=== PATIENT | female | born 1990 | race Caucasian/White ===

== ENCOUNTER 2016-08-01 23:02 | Inpatient (IN) | payer OTHER ==
[~2016-08-01] VITALS: Ht 162.6 cm; Wt 78.4 kg
[2016-08-01 23:05] VITALS: BP 88/59; PULSE 100; RESP 16
--- NOTE | 2016-08-01 23:05 | PD ---
HPI Chief Complaint: alcohol intoxication, Gallagher act Time Seen by Provider: 23:05 Travel History International Travel<30 days: No Contact w/Intl Traveler<30days: No Traveled to known affect area: No History of Present Illness HPI 26-year-old female was found heavily intoxicated by bystanders EMS was called. Patient was combative at the scene and she was brought in as Gallagher act. By the time she got here she was pretty much unresponsive even with sternal rub. Her airway was unsafe at that point with a high risk of aspiration. I decided to intubate her at that point. Patient was unable to give any meaningful history. No external signs of injuries. [facility] Past Medical History Narrative Medical List of her past medical, surgical, social and family history was reviewed from the nursing note. Social History Tobacco Use: Yes Allergies-Medications (Allergen,Severity, Reaction): Coded Allergies: UNOBTAINABLE (Unverified , 08/02/16) Comments Unknown Narrative Medication Unknown Review of Systems Except as stated in HPI: all other systems reviewed are Neg Physical Exam Narrative GENERAL: Intoxicated, poorly responsive, obese, disheveled SKIN: Warm and dry. HEAD: Atraumatic. Normocephalic. EYES: Pupils equal and round. No scleral icterus. No injection or drainage. ENT: No nasal bleeding or discharge. Mucous membranes pink and moist. NECK: Trachea midline. No JVD. CARDIOVASCULAR: Regular rate and rhythm. No murmur appreciated. RESPIRATORY: No accessory muscle use. Clear to auscultation. Breath sounds equal bilaterally. GASTROINTESTINAL: Abdomen soft, non-tender, nondistended. Hepatic and splenic margins not palpable. MUSCULOSKELETAL: No obvious deformities. No clubbing. No cyanosis. No edema. NEUROLOGICAL: GCS of 8 PSYCHIATRIC: Unable to as Data Data Last Documented VS Vital Signs Date Time Temp Pulse Resp B/P Pulse Ox O2 Delivery O2 Flow Rate FiO2 08/02/16 01:49 103 15 136/66 100 Ventilator 08/01/16 23:52 50 Orders Propofol 1000 Mg/100 Ml Inj (Diprivan 10 (08/01/16 23:30) Lidocaine 2% Inj (Xylocaine 2% Inj) (08/01/16 23:31) Etomidate Inj (Amidate Inj) (08/01/16 23:31) Rocuronium Inj (Zemuron Inj) (08/01/16 23:32) Succinylcholine Inj (Quelicin Inj) (08/01/16 23:32) Ammonia (08/02/16 00:01) Complete Blood Count With Diff (08/02/16 00:) Comprehensive Metabolic Panel (08/02/16 00:01) Prothrombin Time / Inr (Pt) (08/02/16 00:01) Urinalysis - C+S If Indicated (08/02/16 00:) Arterial Blood Gas (Abg) (08/02/16 00:01) Chest, Single Ap (08/02/16 00:01) Ct Brain W/O Iv Contrast(Rout) (08/02/16 00:01) Blood Glucose (08/02/16 00:) Ecg Monitoring (08/02/16 00:) Iv Access Insert/Monitor (08/02/16 00:) Oximetry (08/02/16 00:01) Sodium Chloride 0.9% Flush (Ns Flush) (08/02/16 00:15) Sodium Chlor 0.9% 1000 Ml Inj (Ns 1000 M (08/02/16 00:01) Drug Screen, Random Urine (08/02/16 00:01) Alcohol (Ethanol) (08/02/16 00:01) Salicylates (Aspirin) (08/02/16 00:01) Tylenol (Acetaminophen) (08/02/16 00:01) Ed Urine Pregnancytest Poc (08/02/16 00:01) Urinary Catheter Insert/Apply (08/02/16 00:01) Nadeem-Gastric Tube Insert/Mon (08/02/16 00:01) Propofol 1000 Mg/100 Ml Inj (Diprivan 10 (08/02/16 00:15) ^ Infusion (08/02/16 00:01) RASS (08/02/16 00:01) Neurological Rass Scale ALMA DELIA.Q2H (08/02/16 00:01) Propofol 200 Mg/20 Ml Inj (Diprivan 200 (08/02/16 00:15) Etomidate Inj (Amidate Inj) (08/02/16 00:15) Succinylcholine Inj (Quelicin Inj) (08/02/16 00:15) Admit To Inpatient (08/02/16 ) Code Status (08/02/16 01:53) Vital Signs (Adult) ALMA DELIA.Q1H (08/02/16 01:53) Activity Bed Rest (08/02/16 01:53) ^ Elevate Head Of Bed (08/02/16 01:53) Neuro Checks . ORDERED (08/02/16 01:53) Intake + Output Q1H (08/02/16 01:53) Diet Npo (08/02/16 Breakfast) Sodium Chlor 0.9% 1000 Ml Inj (Ns 1000 M (08/02/16 01:53) Sodium Chloride 0.9% Flush (Ns Flush) (08/02/16 02:00) Sodium Chloride 0.9% Flush (Ns Flush) (08/02/16 09:00) Acetaminophen (Tylenol) (08/02/16 02:00) Lorazepam Inj (Ativan Inj) (08/02/16 02:00) Artificial Tears Opth Soln (Tears Natura (08/02/16 09:00) Ondansetron Inj (Zofran Inj) (08/02/16 02:00) Metoclopramide Inj (Reglan Inj) (08/02/16 02:00) Docusate Sodium Liq (Colace Liq) (08/02/16 02:00) Albuterol-Ipratropium Neb (Duoneb Neb) (08/02/16 02:00) Complete Blood Count With Diff (08/03/16 04:00) Comprehensive Metabolic Panel (08/03/16 04:00) Creatine Kinase (Cpk) (08/02/16 01:53) Magnesium (Mg) (08/03/16 04:00) Phosphorus (Po4) (08/03/16 04:00) Mold Clamper / Telemetry ALMA DELIA.Q8H (08/02/16 01:53) Enoxaparin Inj (Lovenox Inj) (08/02/16 06:00) Scd Bilateral/Knee High ALMA DELIA.BID (08/02/16 01:53) Fernandez Bilateral/Knee High ALMA DELIA.QSHIFT (08/02/16 01:53) ^ Initiate Protocol (08/02/16 01:53) ^ Instruction (08/02/16 01:53) Misc Nursing Information (08/02/16 02:00) Chlorhexidine 2% Cloth (Chlorhexidine 2% (08/02/16 04:00) Chlorhexidine 2% Cloth (Chlorhexidine 2% (08/02/16 02:00) Mrsa Pcr Surveillance (08/02/16 01:53) Propofol 1000 Mg/100 Ml Inj (Diprivan 10 (08/02/16 02:00) Neurological Rass Scale Q30MX2,Q2HX4,Q4H (08/02/16 01:53) Fentanyl Drip (Fentanyl Drip) (08/02/16 02:00) Inpatient Certification (08/02/16 ) ^ Medication Admin Instruction (08/02/16 01:57) ^ Notify Dr: Other (08/02/16 01:57) Phosphorus (Po4) (08/02/16 01:57) Potassium Chlor 40 Meq Premix (Kcl 40 Me (08/02/16 02:00) Potassium Chlor 20 Meq Premix (Kcl 20 Me (08/02/16 02:00) Potassium Chlor 40 Meq Premix (Kcl 40 Me (08/02/16 02:00) Potassium Chlor 20 Meq Premix (Kcl 20 Me (08/02/16 02:00) Magnesium Sulfate Inj (Magnesium Sulfate (08/02/16 02:00) Magnesium Oxide (Mag-Ox) (08/02/16 02:00) Magnesium Sulfate Inj (Magnesium Sulfate (08/02/16 02:00) Potassium Phosphate (K-Phos) (08/02/16 02:00) Sodium Phosphate Inj (Sodium Phosphate I (08/02/16 02:00) Potassium Phosphate (K-Phos) (08/02/16 02:00) Potassium Phosphate Inj (Potassium Phosp (08/02/16 02:00) Chlordiazepoxide (Librium) (08/02/16 09:00) Admit Order (Ed Use Only) (08/02/16 02:13) Chest, Single Ap (08/02/16 ) Labs Laboratory Tests Test 08/02/16 08/02/16 00:35 01:00 Prothrombin Time 10.3 SEC Prothromb Time International 0.9 RATIO Ratio Sodium Level 145 MEQ/L Potassium Level 3.9 MEQ/L Chloride Level 110 MEQ/L Carbon Dioxide Level 24.3 MEQ/L Anion Gap 11 MEQ/L Blood Urea Nitrogen 6 MG/DL Creatinine 0.74 MG/DL Estimat Glomerular Filtration 95 ML/MIN Rate Random Glucose 104 MG/DL Calcium Level 8.2 MG/DL Phosphorus Level 4.7 MG/DL Total Bilirubin 0.3 MG/DL Aspartate Amino Transf 59 U/L (AST/SGOT) Alanine Aminotransferase 82 U/L (ALT/SGPT) Alkaline Phosphatase 69 U/L Ammonia 22 MCMOL/L Total Creatine Kinase 138 U/L Total Protein 8.0 GM/DL Albumin 4.0 GM/DL Salicylates Level 3.8 MG/DL Acetaminophen Level LESS THAN 2.0 MCG/ML Ethyl Alcohol Level 385 MG/DL White Blood Count 10.0 TH/MM3 Red Blood Count 5.23 MIL/MM3 Hemoglobin 15.7 GM/DL Hematocrit 46.4 % Mean Corpuscular Volume 88.7 FL Mean Corpuscular Hemoglobin 30.1 PG Mean Corpuscular Hemoglobin 33.9 % Concent Red Cell Distribution Width 15.3 % Platelet Count 230 TH/MM3 Mean Platelet Volume 8.1 FL Neutrophils (%) (Auto) 47.1 % Lymphocytes (%) (Auto) 47.2 % Monocytes (%) (Auto) 3.9 % Eosinophils (%) (Auto) 1.0 % Basophils (%) (Auto) 0.8 % Neutrophils # (Auto) 4.7 TH/MM3 Lymphocytes # (Auto) 4.7 TH/MM3 Monocytes # (Auto) 0.4 TH/MM3 Eosinophils # (Auto) 0.1 TH/MM3 Basophils # (Auto) 0.1 TH/MM3 CBC Comment DIFF FINAL Differential Comment Blood Gas Puncture Site RT FOOT Blood Gas Patient Temperature 98.6 Blood Gas HCO3 21 mmol/L Blood Gas Base Excess -4.0 mmol/L Blood Gas Oxygen Saturation 93 % Arterial Blood pH 7.32 Arterial Blood Partial 42 mmHg Pressure CO2 Arterial Blood Partial 117 mmHg Pressure O2 Arterial Blood Oxygen Content 21.4 Vol % Arterial Blood 3.3 % Carboxyhemoglobin Arterial Blood Methemoglobin 0.9 % Blood Gas Hemoglobin 16.2 G/DL Oxygen Delivery Device VENTILATOR Blood Gas Ventilator Setting AC14/500 5 PEEP Blood Gas Inspired Oxygen 50 % Urine Opiates Screen NEG Urine Barbiturates Screen NEG Urine Amphetamines Screen NEG Urine Benzodiazepines Screen NEG Urine Cocaine Screen POS Urine Cannabinoids Screen POS Urine Color COLORLESS Urine Turbidity CLEAR Urine pH 5.0 Urine Specific [place] 1.004 Urine Protein NEG mg/dL Urine Glucose (UA) NEG mg/dL Urine Ketones NEG mg/dL Urine Occult Blood NEG Urine Nitrite NEG Urine Bilirubin NEG Urine Urobilinogen LESS THAN 2.0 MG/DL Urine Leukocyte Esterase NEG Urine Amorphous Sediment RARE Urine Bacteria RARE /hpf Microscopic Urinalysis Comment CATH-CULTURE IND MDM Medical Decision Making Medical Screen Exam Complete: Yes Emergency Medical Condition: Yes Medical Record Reviewed: Yes Differential Diagnosis Alcohol intoxication, intracranial injury, alcohol poisoning Narrative Course 2 AM blood test results are back. Alcohol level was extremely high. Chest x- ray after intubation was mentioned to be ET tube below into almost right mainstem bronchus. This was pulled out 3 cm. A repeat chest x-ray has been ordered. Patient was admitted to the flume maker. Awaiting for the CT scan of the head. Propofol drip for sedation was started. Critical Care Narrative Aggregate critical care time was 60 minutes. Time to perform other separately billable procedures was not included in the critical care time. My time did not include minutes spent treating any other patients simultaneously or on activities that did not directly contribute to the patient's treatment. The services I provided to this patient were to treat and/or prevent clinically significant deterioration that could result in: Respiratory failure, ventilator management, altered mental status, propofol drip I provided critical care services requiring my management, as noted below: Chart data review, documentation time, medication orders and management, vital sign assessments/reviewing monitor data, ordering and reviewing lab tests, ordering and interpreting/reviewing x-rays and diagnostic studies, care of the patient and discussion of the patient with the admitting physicians. Procedures Procedure Narrative After the risks and benefits were discussed the following procedure was performed: INTUBATION: The patient was put in optimal position for the procedure. Rapid sequence intubation was initiated by me using 20 milligrams of etomidate IV and 100 milligrams of succinylcholine IV. The patient was intubated with a 7.5 cuffed endotracheal tube. Tube placement was confirmed by visualization of the tube and balloon passing through the cords, capnometry and subsequent chest x-ray. Breath sounds were equal and well aerated bilaterally postintubation. No breath sounds over stomach. Patient tolerated procedure well. EKG Prior to Arrival: No Physician Communication Physician Communication Dr. Das Diagnosis Primary Impression: Alcohol poisoning Qualified Code: T51.94XA - Alcohol poisoning, undetermined intent, initial encounter Additional Impressions: Slowness and poor responsiveness Respiratory failure Qualified Code: J96.00 - Acute respiratory failure, unspecified whether with hypoxia or hypercapnia Admitting Information Admitting Physician Requests: Admit Melissa Grande MD Aug 01, 2016 23:05
[2016-08-01] MEDS ORDERED: PROPOFOL 1000 MG/100 ML INJ 100 ML ONE (23:30)
[2016-08-01] MEDS ORDERED: ETOMIDATE 20 MG/10 ML VIAL ONE (23:31)
[2016-08-01] MEDS ORDERED: LIDOCAINE HCL 2% 100 MG/5 ML SYRINGE ONE (23:31)
[2016-08-01] MEDS ORDERED: SUCCINYLCHOLINE CHLORIDE 200 MG/10 ML VIAL ONE (23:32)
[2016-08-01] MEDS ORDERED: ROCURONIUM INJ 50 MG/5 ML VIAL ONE (23:32)
[2016-08-01 23:38] VITALS: BP 99/65; PULSE 110; RESP 26; O2SAT 96
[2016-08-01 23:44] VITALS: O2SAT 100
[2016-08-01 23:52] VITALS: BP 168/122; PULSE 132; RESP 15; O2SAT 100
[2016-08-02] VITALS (18 sets, daily range): BP systolic 123–147; BP diastolic 66–106; PULSE 81–113; RESP 14–21; TEMP 98.2–98.9; O2SAT 93–100
[2016-08-02] MEDS ORDERED: SODIUM CHLOR 0.9% 1000 ML INJ 1,000 ML IV SCH (00:01)
[2016-08-02] MEDS ORDERED: SUCCINYLCHOLINE CHLORIDE 200 MG/10 ML VIAL IV PUSH ONE (00:15)
[2016-08-02] MEDS ORDERED: SODIUM CHLORIDE 0.9% FLUSH 5 ML FLUSH IVF PRN (00:15)
[2016-08-02] MEDS ORDERED: ETOMIDATE 20 MG/10 ML VIAL IV PUSH ONE (00:15)
[2016-08-02] MEDS ORDERED: PROPOFOL 200 MG/20 ML AMP IV ONE (00:15)
[2016-08-02 00:47] LABS: AUTOMATED NEUTROPHIL # 4.7 TH/MM3 (1.8-7.7); BASOPHIL # 0.1 TH/MM3 (0-0.2); BASOPHIL % 0.8 % (0.0-2.0); EOSINOPHIL # 0.1 TH/MM3 (0-0.4); HEMATOCRIT 46.4 % (35.0-46.0); HEMO FLAGS DIFF FINAL; LYMPH % 47.2 % (9.0-44.0); LYMPHOCYTE # 4.7 TH/MM3 (1.0-4.8); MEAN CELL VOLUME 88.7 FL (80.0-100.0); MEAN CORPUSCULAR HEMOGLOBIN 30.1 PG (27.0-34.0); MEAN CORPUSCULAR HGB CONC 33.9 % (32.0-36.0); MONO % 3.9 % (0.0-8.0); NEUT % 47.1 % (16.0-70.0); PLATELET COUNT 230 TH/MM3 (150-450); RED BLOOD COUNT 5.23 MIL/MM3 (4.00-5.30); RED CELL DISTRIBUTION WIDTH 15.3 % (11.6-17.2)
[2016-08-02 01:07] LABS: ALKALINE PHOSPHATASE 69 U/L (45-117); TOTAL BILIRUBIN ADULT 0.3 MG/DL (0.2-1.0)
--- NOTE | 2016-08-02 01:10 | RADRPT ---
EXAM DATE/TIME: 08/02/2016 00:48 [facility] COMPARISON: No previous studies available for comparison. INDICATIONS : Post intubation. MEDICAL HISTORY : None. SURGICAL HISTORY : None. ENCOUNTER: Initial ACUITY: 1 day PAIN SCORE: Non-responsive. LOCATION: Bilateral chest FINDINGS: Endotracheal tube tip is in proximal right mainstem bronchus. This should be withdrawn about 3 cm. NG coiled in stomach. There is previous fusion across the cervicothoracic junction. No focal consolidat ion or effusion. CONCLUSION: 1. Endotracheal tube tip in proximal right mainstem bronchus. This should be withdrawn by 3 cm. Zachary Wills MD on August 02, 2016 at 1:07 Board Certified Radiologist. This report was verified electronically.
[2016-08-02 01:17] LABS: ALT (GPT) 82 U/L (10-53); ANION GAP 11 MEQ/L (5-15); AST (GOT) 59 U/L (15-37); BICARBONATE 24.3 MEQ/L (21.0-32.0); BLOOD UREA NITROGEN 6 MG/DL (7-18); CHLORIDE 110 MEQ/L (98-107); GLOMERULAR FILTRATION RATE 95 ML/MIN (>89); POTASSIUM 3.9 MEQ/L (3.5-5.1); SODIUM (NA) 145 MEQ/L (136-145)
[2016-08-02 01:19] LABS: ACETAMINOPHEN LESS THAN 2.0 MCG/ML (10.0-30.0); INTERNATIONAL NORMALIZED RATIO 0.9 RATIO; PROTHROMBIN TIME - PATIENT 10.3 SEC (9.8-11.6)
[2016-08-02 01:26] LABS: AMPHETAMINE, URINE NEG (NEG); BARBITURATES, URINE NEG (NEG); BLOOD GAS CARBOXYHEMOGLOBIN 3.3 % (0-4); BLOOD GAS HCO3 21 mmol/L (22-26); BLOOD GAS METHEMOGLOBIN 0.9 % (0-2); BLOOD GAS O2 HGB SATURATION 93 % (90-100); BLOOD GAS OXYGEN CONTENT 21.4 Vol % (12.0-20.0); BLOOD GAS PCO2 42 mmHg (38-42); BLOOD GAS PO2 117 mmHg (61-120); BLOOD GAS TOTAL HGB 16.2 G/DL (12.0-16.0); COCAINE, URINE POS (NEG); CRITICAL VALUE NO; DRAW SITE RT FOOT; FIO2 50 %; NUMBER OF ARTERIAL PUNCTURES 1; OXYGEN DEVICE VENTILATOR; TEMP CORR TO 98.6; VENT SETTINGS AC14/500 5 PEEP
[2016-08-02 01:27] LABS: STAT YES
--- NOTE | 2016-08-02 01:59 | HHI.HP ---
HPI Service Critical Care Medicine Primary Care Physician Unknown Admission Diagnosis Diagnosis: Travel History International Travel<30 Days: No Contact w/Intl Traveler <30 Da: No History of Present Illness 26-year-old female brought to emergency department heavily intoxicated with alcohol level 385, positive for cocaine and marijuana. In the emergency department she was lethargic but responsive and was intubated by ED attending for an airway protection. Review of Systems ROS Unable to obtain patient is sedated and intubated Past Family Social History Allergies: Coded Allergies: UNOBTAINABLE (Unverified , 08/02/16) Past Medical History Unobtainable Past Surgical History Unobtainable Active Ordered Medications Current Medications Medications (Trade) Dose Ordered Sig/Prince Route PRN Reason Start Time Stop Time Status Last Admin Dose Admin IV Flush 2 ml 2 ml UNSCH PRN IVF FLUSH AFTER USING IV ACCESS 08/02/16 00:15 Propofol 100 ml @ 0 mls/hr TITRATE IV 08/02/16 00:15 Sodium Chloride (NS 1000 ml Inj) 1,000 ml @ 184 mls/hr Q5H27M IV 08/02/16 01:53 IV Flush (NS Flush) 2 ml UNSCH PRN IV FLUSH FLUSH AFTER USING IV ACCESS 08/02/16 02:00 IV Flush (NS Flush) 2 ml BID IV FLUSH 08/02/16 09:00 Acetaminophen (Tylenol) 650 mg Q6H PRN PO PAIN 1-10 AND/OR FEVER >101F 08/02/16 02:00 Lorazepam (Ativan Inj) 2 mg Q4H PRN IV Agitation/Sedation 08/02/16 02:00 Artificial Tears (Tears Naturale Opth Soln) 1 drop TID EACH EYE 08/02/16 09:00 Ondansetron HCl (Zofran Inj) 4 mg Q6H PRN IV NAUSEA OR VOMITING 08/02/16 02:00 Metoclopramide HCl (Reglan Inj) 10 mg Q6H PRN IV NAUSEA OR VOMITING 08/02/16 02:00 Docusate Sodium (Colace Liq) 100 mg Q12H G-TUBE 08/02/16 02:00 Enoxaparin Sodium (Lovenox Inj) 40 mg Q24H SQ 08/02/16 06:00 Miscellaneous Information 1 Q361D XX 08/02/16 02:00 Chlorhexidine Gluconate (Chlorhexidine 2% Cloth) 3 pack Taper DAILY@04 TOP 08/02/16 04:00 07/29/17 03:59 Chlorhexidine Gluconate 3 pack 3 pack UNSCH PRN TOP HYGIENIC CARE 08/02/16 02:00 Propofol 100 ml @ 0 mls/hr TITRATE IV 08/02/16 02:00 Fentanyl Citrate 250 ml @ 0 mls/hr TITRATE IV 08/02/16 02:00 Potassium Chloride 100 ml @ 50 mls/hr Q2H PRN IV For Potassium 2.8 - 3.2 mEq/L 08/02/16 02:00 Potassium Chloride 100 ml @ 50 mls/hr Q2H PRN IV For Potassium 2.8 - 3.2 mEq/L 08/02/16 02:00 Potassium Chloride 100 ml @ 25 mls/hr UNSCH PRN IV For Potassium 3.3 - 3.5 mEq/L 08/02/16 02:00 Potassium Chloride 100 ml @ 50 mls/hr Q2H PRN IV For Potassium 3.3 - 3.5 mEq/L 08/02/16 02:00 Magnesium Sulfate/ Sodium Chloride (Magnesium Sulfate Inj/NS Inj) 100 ml @ 50 mls/hr UNSCH PRN IV For Magnesium 0.9 - 1.1 mg/dL 08/02/16 02:00 Magnesium Oxide 800 mg 800 mg UNSCH PRN PO For Magnesium 1.2 - 1.6 mg/dL 08/02/16 02:00 Magnesium Sulfate/ Sodium Chloride (Magnesium Sulfate Inj/NS Inj) 100 ml @ 50 mls/hr UNSCH PRN IV For Magnesium 1.2 - 1.6 mg/dL 08/02/16 02:00 Potassium Phosphate 2000 mg 2,000 mg Q4H PRN PO For Phosphorus < 2.5 mg/dL 08/02/16 02:00 Sodium Phosphate/ Sodium Chloride (Sodium Phosphate Inj/NS 250 ml Inj) 250 ml @ 42 mls/hr UNSCH PRN IV For Phosphorus < 2.5 mg/dL 08/02/16 02:00 Potassium Phosphate 2000 mg 2,000 mg UNSCH PRN PO/TUBE SEE LABEL COMMENTS 08/02/16 02:00 Potassium Phosphate/Sodium Chloride (Potassium Phosphate Inj/NS 250 ml Inj) 260 ml @ 42 mls/hr UNSCH PRN IV SEE LABEL COMMENTS 08/02/16 02:00 Chlordiazepoxide (Librium) 25 mg Taper TID PO 08/02/16 09:00 08/05/16 08:59 Family History Noncontributory Social History Positive for alcohol and illicit drug abuse Physical Exam Vital Signs Vital Signs Date Time Temp Pulse Resp B/P Pulse Ox O2 Delivery O2 Flow Rate FiO2 08/02/16 01:19 105 15 143/83 100 Ventilator 08/01/16 23:52 132 15 168/122 100 50 08/01/16 23:44 50 08/01/16 23:44 100 50 08/01/16 23:38 110 26 99/65 96 Room Air 08/01/16 23:38 96 Room Air 08/01/16 23:05 100 16 88/59 Physical Exam GENERAL: Well-nourished, well-developed patient. Sedated and intubated SKIN: Warm and dry. HEAD: Normocephalic. EYES: No scleral icterus. No injection or drainage. NECK: Supple, trachea midline. No JVD or lymphadenopathy. CARDIOVASCULAR: Regular rate and rhythm without murmurs, gallops, or rubs. RESPIRATORY: Breath sounds equal bilaterally. No accessory muscle use. GASTROINTESTINAL: Abdomen soft, non-tender, nondistended. MUSCULOSKELETAL: No cyanosis, or edema. BACK: Nontender without obvious deformity. No CVA tenderness. EXTREMITIES: Nonfocal no edema or cyanosis Laboratory Laboratory Tests Test 08/02/16 08/02/16 00:35 01:00 White Blood Count 10.0 Red Blood Count 5.23 Hemoglobin 15.7 Hematocrit 46.4 Mean Corpuscular Volume 88.7 Mean Corpuscular Hemoglobin 30.1 Mean Corpuscular Hemoglobin 33.9 Concent Red Cell Distribution Width 15.3 Platelet Count 230 Mean Platelet Volume 8.1 Neutrophils (%) (Auto) 47.1 Lymphocytes (%) (Auto) 47.2 Monocytes (%) (Auto) 3.9 Eosinophils (%) (Auto) 1.0 Basophils (%) (Auto) 0.8 Neutrophils # (Auto) 4.7 Lymphocytes # (Auto) 4.7 Monocytes # (Auto) 0.4 Eosinophils # (Auto) 0.1 Basophils # (Auto) 0.1 CBC Comment DIFF FINAL Differential Comment Prothrombin Time 10.3 Prothromb Time International 0.9 Ratio Sodium Level 145 Potassium Level 3.9 Chloride Level 110 Carbon Dioxide Level 24.3 Anion Gap 11 Blood Urea Nitrogen 6 Creatinine 0.74 Estimat Glomerular Filtration 95 Rate Random Glucose 104 Calcium Level 8.2 Total Bilirubin 0.3 Aspartate Amino Transf 59 (AST/SGOT) Alanine Aminotransferase 82 (ALT/SGPT) Alkaline Phosphatase 69 Ammonia 22 Total Protein 8.0 Albumin 4.0 Salicylates Level 3.8 Acetaminophen Level LESS THAN 2.0 Ethyl Alcohol Level 385 Blood Gas Puncture Site RT FOOT Blood Gas Patient Temperature 98.6 Blood Gas HCO3 21 Blood Gas Base Excess -4.0 Blood Gas Oxygen Saturation 93 Arterial Blood pH 7.32 Arterial Blood Partial 42 Pressure CO2 Arterial Blood Partial 117 Pressure O2 Arterial Blood Oxygen Content 21.4 Arterial Blood 3.3 Carboxyhemoglobin Arterial Blood Methemoglobin 0.9 Blood Gas Hemoglobin 16.2 Oxygen Delivery Device VENTILATOR Blood Gas Ventilator Setting AC14/500 5 PEEP Blood Gas Inspired Oxygen 50 Urine Opiates Screen NEG Urine Barbiturates Screen NEG Urine Amphetamines Screen NEG Urine Benzodiazepines Screen NEG Urine Cocaine Screen POS Urine Cannabinoids Screen POS Result Diagram: 08/02/16 0035 08/02/16 0035 Assessment and Plan Assessment and Plan Respiratory failure - Intubated for an airway protection - Continue mechanical ventilation - SBT when intoxication resolved if no withdrawal symptoms Encephalopathy - Due to Intoxication - Alcohol level 385, positive cannabis, positive cocaine - Monitor for withdrawal - Sedation with propofol and fentanyl - Librium taper - Ativan when necessary DVT GI prophylaxis - Heparin and Pepcid Critical Care: The total critical care time was 35 minutes. Time to perform other separately billable procedures was not included in the critical care time. Brando Das MD Aug 02, 2016 01:59
[2016-08-02] MEDS ORDERED: MAGNESIUM SULFATE INJ 4 GM in SODIUM CHLORIDE 0.9% INJ 92 ML IV PRN (02:00)
[2016-08-02] MEDS ORDERED: SODIUM CHLORIDE 0.9% FLUSH 5 ML FLUSH IV FLUSH PRN (02:00)
[2016-08-02] MEDS ORDERED: POTASSIUM PHOSPHATE INJ 30 MMOL in SODIUM CHLOR 0.9% 250 ML INJ 250 ML IV PRN (02:00)
[2016-08-02] MEDS ORDERED: METOCLOPRAMIDE HCL 10 MG/2 ML VIAL IV PRN (02:00)
[2016-08-02] MEDS ORDERED: POTASSIUM PHOSPHATE MONOBASIC 500 MG TAB PO/TUBE PRN (02:00)
[2016-08-02] MEDS ORDERED: ACETAMINOPHEN 325 MG TAB PO PRN (02:00)
[2016-08-02] MEDS ORDERED: fentaNYL DRIP 250 ML IV SCH (02:00)
[2016-08-02] MEDS ORDERED: POTASSIUM CHLOR 20 MEQ PREMIX 100 ML IV PRN ×2 (02:00)
[2016-08-02] MEDS ORDERED: RESP: ALBUTEROL 2.5 MG/IPRATROPIUM 0.5 MG NEB (PRN) INH (02:00)
[2016-08-02] MEDS ORDERED: PROPOFOL 1000 MG/100 ML INJ 100 ML IV SCH (02:00)
[2016-08-02] MEDS ORDERED: CHLORHEXIDINE GLUCONATE 2 % 1 PACK (2 CLOTHS) TOP PRN (02:00)
[2016-08-02] MEDS ORDERED: SODIUM PHOSPHATE INJ 30 MMOL in SODIUM CHLOR 0.9% 250 ML INJ 240 ML IV PRN (02:00)
[2016-08-02] MEDS ORDERED: ONDANSETRON HCL 4 MG/2 ML VIAL IV PRN (02:00)
[2016-08-02] MEDS ORDERED: MAGNESIUM SULFATE INJ 2 GM in SODIUM CHLORIDE 0.9% INJ 96 ML IV PRN (02:00)
[2016-08-02] MEDS: DOCUSATE SODIUM 100 MG/10 ML UDC G-TUBE SCH ×2 (02:00→14:00)
[2016-08-02] MEDS ORDERED: POTASSIUM PHOSPHATE MONOBASIC 500 MG TAB PO PRN (02:00)
[2016-08-02] MEDS ORDERED: MISCELLANEOUS NURSING INFORMATION XX SCH (02:00)
[2016-08-02] MEDS ORDERED: POTASSIUM CHLOR 40 MEQ PREMIX 100 ML IV PRN ×2 (02:00)
[2016-08-02] MEDS ORDERED: MAGNESIUM OXIDE 400 MG TAB PO PRN (02:00)
[2016-08-02] MEDS: PROPOFOL 1000 MG/100 ML INJ 100 ML IV SCH ×3 (02:37→07:25)
--- NOTE | 2016-08-02 02:54 | RADRPT ---
EXAM DATE/TIME: 08/02/2016 02:27 [facility] COMPARISON: CHEST SINGLE AP, August 02, 2016, 0:48. INDICATIONS : ET tube repositioning. MEDICAL HISTORY : None. SURGICAL HISTORY : None. ENCOUNTER: Subsequent ACUITY: 1 day PAIN SCORE: Non-responsive. LOCATION: Bilateral chest FINDINGS: Endotracheal tube tip is in satisfactory position about 2 cm above the rachel. NG in stomach. Minimal atelectasis in the lungs. No effusion or pneumothorax. Previous fusion lower cervical spine. CONCLUSION: 1. Endotracheal tube tip in satisfactory position. No new infiltrate. Zachary Wills MD on August 02, 2016 at 2:52 Board Certified Radiologist. This report was verified electronically.
[2016-08-02] MEDS: SODIUM CHLOR 0.9% 1000 ML INJ 1,000 ML IV SCH ×4 (02:59→23:41)
[2016-08-02] MEDS: CHLORHEXIDINE GLUCONATE 2 % 1 PACK (2 CLOTHS) TOP SCH (04:00)
--- NOTE | 2016-08-02 04:16 | RADRPT ---
EXAM DATE/TIME: 08/02/2016 03:47 [facility] COMPARISON: No previous studies available for comparison. INDICATIONS : Altered mental status. ETOH. RADIATION DOSE: 56.35 CTDIvol (mGy) MEDICAL HISTORY : None SURGICAL HISTORY : None. ENCOUNTER: Initial ACUITY: 1 day PAIN SCALE: Non-responsive LOCATION: cranial TECHNIQUE: Multiple contiguous axial images were obtained of the head. Using automated exposure control and adj ustment of the mA and/or kV according to patient size, radiation dose was kept as low as reasonably a chievable to obtain optimal diagnostic quality images. FINDINGS: CEREBRUM: The ventricles are normal for age. No evidence of midline shift, mass lesion, hemorrhage or acute in farction. 2 small areas of encephalomalacia in the frontal lobes. No extra-axial fluid collections ar e seen. POSTERIOR FOSSA: The cerebellum and brainstem are intact. The 4th ventricle is midline. The cerebellopontine angle i s unremarkable. EXTRACRANIAL: The visualized portion of the orbits is intact. SKULL: The calvaria is intact. No evidence of skull fracture. CONCLUSION: 1. No acute findings. 2 small areas of encephalomalacia in the frontal lobes. Small yoel hole right f rontal bone. Zachary Wills MD on August 02, 2016 at 4:12 Board Certified Radiologist. This report was verified electronically.
[2016-08-02] MEDS: ENOXAPARIN SODIUM 40 MG/0.4 ML SYRINGE SQ SCH (04:42)
[2016-08-02] MEDS: ARTIFICIAL TEARS OPTH SOLN 15 ML BTL EACH EYE SCH ×2 (09:00→13:00)
[2016-08-02] MEDS: LORazepam 2 MG/ML VIAL IV PRN ×3 (09:07→23:35)
[2016-08-02] MEDS: chlordiazePOXIDE 25 MG CAP PO SCH ×2 (09:07→16:40)
[2016-08-02] MEDS ORDERED: SODIUM CHLOR 0.9% 1000 ML INJ 1,000 ML IV ONE (10:45)
[2016-08-02 11:14] LABS: BACTERIA, URINE RARE /hpf; BLOOD, URINE NEG (NEG); COMMENT (UR) CATH-CULTURE IND; CULTURE IF INDICATED CATH CULTURE IND; GLUCOSE,URINE NEG (NEG); KETONE, URINE NEG (NEG); NITRITE,URINE NEG (NEG); URINE COLOR COLORLESS (YELLW/STRAW)
[2016-08-02 13:17] LABS: BETA HCG QUANT LESS THAN 1 MIU/ML (0-5)
[2016-08-02] MEDS: SODIUM CHLORIDE 0.9% FLUSH 5 ML FLUSH IV FLUSH SCH ×2 (16:41→23:35)
[2016-08-03] VITALS (10 sets, daily range): BP systolic 97–157; BP diastolic 52–97; PULSE 68–106; RESP 24–33; TEMP 97.8–100.2; O2SAT 93–96
[2016-08-03] MEDS: DOCUSATE SODIUM 100 MG/10 ML UDC G-TUBE SCH ×2 (00:46→14:00)
[2016-08-03] MEDS: LORazepam 2 MG/ML VIAL IV PRN ×3 (03:40→12:29)
[2016-08-03] MEDS: CHLORHEXIDINE GLUCONATE 2 % 1 PACK (2 CLOTHS) TOP SCH (04:00)
[2016-08-03 04:30] LABS: AUTOMATED NEUTROPHIL # 4.1 TH/MM3 (1.8-7.7); BASOPHIL % 0.4 % (0.0-2.0); EOSINOPHIL # 0.1 TH/MM3 (0-0.4); EOSINOPHIL % 2.2 % (0.0-4.0); HEMATOCRIT 38.9 % (35.0-46.0); HEMO FLAGS DIFF FINAL; LYMPH % 30.1 % (9.0-44.0); MEAN CELL VOLUME 88.3 FL (80.0-100.0); MEAN CORPUSCULAR HEMOGLOBIN 30.1 PG (27.0-34.0); MEAN CORPUSCULAR HGB CONC 34.1 % (32.0-36.0); MONO % 6.3 % (0.0-8.0); PLATELET COUNT 148 TH/MM3 (150-450); RED BLOOD COUNT 4.41 MIL/MM3 (4.00-5.30); RED CELL DISTRIBUTION WIDTH 14.8 % (11.6-17.2); WHITE BLOOD COUNT 6.7 TH/MM3 (4.0-11.0)
[2016-08-03 05:32] LABS: ALKALINE PHOSPHATASE 43 U/L (45-117); ALT (GPT) 53 U/L (10-53); ANION GAP 9 MEQ/L (5-15); AST (GOT) 24 U/L (15-37); BICARBONATE 25.1 MEQ/L (21.0-32.0); BLOOD UREA NITROGEN 7 MG/DL (7-18); CHLORIDE 107 MEQ/L (98-107); GLOMERULAR FILTRATION RATE 121 ML/MIN (>89); MAGNESIUM 1.7 MG/DL (1.5-2.5); POTASSIUM 3.2 MEQ/L (3.5-5.1); SODIUM (NA) 141 MEQ/L (136-145); TOTAL BILIRUBIN ADULT 0.7 MG/DL (0.2-1.0)
[2016-08-03] MEDS: SODIUM CHLOR 0.9% 1000 ML INJ 1,000 ML IV SCH ×2 (06:44→10:35)
[2016-08-03] MEDS: ENOXAPARIN SODIUM 40 MG/0.4 ML SYRINGE SQ SCH (06:44)
--- NOTE | 2016-08-03 07:58 | HHI.PR ---
Subjective Remarks This is a pleasant 26 y/o Female who was brought in to ER with heavy alcohol intoxication alcohol level was 385 also drug screen positive for marijuana and Cocaine, was lethargic but responsive and was intubated for airway protection, seen by Line Tender [place] extubated yesterday and transferred to Hospitalist group for today. Patient stable seen in Intensive Care Unit discussed with nurse Mr. Anderson her Potassium is 3.2, Magnesium 1.7, Phosphorus 2.4 replaced and following. no complaint by patient no Nausea, vomit or diarrhea. Objective Vital Signs Date Time Temp Pulse Resp B/P Pulse Ox O2 Delivery O2 Flow Rate FiO2 08/03/16 06:00 73 08/03/16 04:00 75 08/03/16 04:00 98.3 82 30 157/86 96 08/03/16 02:00 90 08/03/16 00:00 98.4 96 24 141/97 93 08/03/16 00:00 77 08/02/16 22:00 82 08/02/16 20:41 96 08/02/16 20:00 98.9 83 18 146/72 93 08/02/16 20:00 83 08/02/16 18:00 81 08/02/16 16:00 98.9 94 21 135/84 95 08/02/16 16:00 94 08/02/16 14:00 96 08/02/16 12:00 98.6 113 20 137/78 95 08/02/16 12:00 113 08/02/16 10:00 104 08/02/16 09:33 96 Nasal Cannula 2.00 08/02/16 08:00 94 Room Air 08/02/16 08:00 113 08/02/16 08:00 98.2 113 18 135/94 100 I/O 08/02/16 08/02/16 08/02/16 08/03/16 08/03/16 08/03/16 07:00 15:00 23:00 07:00 15:00 23:00 Intake Total 179 ml 1838 ml 1575 ml 1465 ml Output Total 925 ml 950 ml 250 ml 275 ml Balance -746 ml 888 ml 1325 ml 1190 ml Intake Oral 0 ml 720 ml 350 ml 240 ml IV Total 179 ml 1118 ml 1225 ml 1225 ml Tube Feeding 0 ml 0 ml Output Urine Total 925 ml 950 ml 250 ml 275 ml Gastric Drainage Total 0 ml # Bowel Movements 0 0 0 0 Result Diagram: 08/03/16 0328 08/03/16 0328 Imaging Last Impressions Head CT 08/02/16 0001 Signed Impressions: Service Date/Time: Tuesday, August 02, 2016 03:47 - CONCLUSION: 1. No acute findings. 2 small areas of encephalomalacia in the frontal lobes. Small yoel hole right frontal bone. Zachary Wills MD Chest X-Ray 08/02/16 0001 Signed Impressions: Service Date/Time: Tuesday, August 02, 2016 00:48 - CONCLUSION: 1. Endotracheal tube tip in proximal right mainstem bronchus. This should be withdrawn by 3 cm. Zachary Wills MD Procedures Endotracheal Intubation and Extubation Other Results Laboratory Tests Test 08/02/16 08/02/16 08/02/16 08/02/16 00:35 01:00 04:15 12:45 Prothrombin Time 10.3 SEC Prothromb Time International 0.9 RATIO Ratio Ammonia 22 MCMOL/L Total Creatine Kinase 138 U/L Salicylates Level 3.8 MG/DL Acetaminophen Level LESS THAN 2.0 MCG/ML Ethyl Alcohol Level 385 MG/DL Urine Color COLORLESS Urine Turbidity CLEAR Urine pH 5.0 Urine Specific [place] 1.004 Urine Protein NEG mg/dL Urine Glucose (UA) NEG mg/dL Urine Ketones NEG mg/dL Urine Occult Blood NEG Urine Nitrite NEG Urine Bilirubin NEG Urine Urobilinogen LESS THAN 2.0 MG/DL Urine Leukocyte Esterase NEG Urine Amorphous Sediment RARE Urine Bacteria RARE /hpf Microscopic Urinalysis Comment CATH-CULTURE IND Blood Gas Puncture Site RT FOOT Blood Gas Patient Temperature 98.6 Blood Gas HCO3 21 mmol/L Blood Gas Base Excess -4.0 mmol/L Blood Gas Oxygen Saturation 93 % Arterial Blood pH 7.32 Arterial Blood Partial 42 mmHg Pressure CO2 Arterial Blood Partial 117 mmHg Pressure O2 Arterial Blood Oxygen Content 21.4 Vol % Arterial Blood 3.3 % Carboxyhemoglobin Arterial Blood Methemoglobin 0.9 % Blood Gas Hemoglobin 16.2 G/DL Oxygen Delivery Device VENTILATOR Blood Gas Ventilator Setting AC14/500 5 PEEP Blood Gas Inspired Oxygen 50 % Urine Opiates Screen NEG Urine Barbiturates Screen NEG Urine Amphetamines Screen NEG Urine Benzodiazepines Screen NEG Urine Cocaine Screen POS Urine Cannabinoids Screen POS Nasal Screen MRSA (PCR) NEGATIVE Human Chorionic Gonadotropin, LESS THAN 1 Quant MIU/ML Test 08/03/16 03:28 White Blood Count 6.7 TH/MM3 Red Blood Count 4.41 MIL/MM3 Hemoglobin 13.3 GM/DL Hematocrit 38.9 % Mean Corpuscular Volume 88.3 FL Mean Corpuscular Hemoglobin 30.1 PG Mean Corpuscular Hemoglobin 34.1 % Concent Red Cell Distribution Width 14.8 % Platelet Count 148 TH/MM3 Mean Platelet Volume 8.2 FL Neutrophils (%) (Auto) 61.0 % Lymphocytes (%) (Auto) 30.1 % Monocytes (%) (Auto) 6.3 % Eosinophils (%) (Auto) 2.2 % Basophils (%) (Auto) 0.4 % Neutrophils # (Auto) 4.1 TH/MM3 Lymphocytes # (Auto) 2.0 TH/MM3 Monocytes # (Auto) 0.4 TH/MM3 Eosinophils # (Auto) 0.1 TH/MM3 Basophils # (Auto) 0.0 TH/MM3 CBC Comment DIFF FINAL Differential Comment Sodium Level 141 MEQ/L Potassium Level 3.2 MEQ/L Chloride Level 107 MEQ/L Carbon Dioxide Level 25.1 MEQ/L Anion Gap 9 MEQ/L Blood Urea Nitrogen 7 MG/DL Creatinine 0.60 MG/DL Estimat Glomerular Filtration 121 ML/MIN Rate Random Glucose 80 MG/DL Calcium Level 7.6 MG/DL Phosphorus Level 2.4 MG/DL Magnesium Level 1.7 MG/DL Total Bilirubin 0.7 MG/DL Aspartate Amino Transf 24 U/L (AST/SGOT) Alanine Aminotransferase 53 U/L (ALT/SGPT) Alkaline Phosphatase 43 U/L Total Protein 6.1 GM/DL Albumin 2.9 GM/DL Objective Remarks GENERAL: Well-nourished, well-developed patient. No Distress. SKIN: Warm and dry. HEAD: Normocephalic. EYES: No scleral icterus. No injection or drainage. NECK: Supple, trachea midline. No JVD or lymphadenopathy. CARDIOVASCULAR: Regular rate and rhythm without murmurs, gallops, or rubs. RESPIRATORY: Breath sounds equal bilaterally. No accessory muscle use. GASTROINTESTINAL: Abdomen soft, non-tender, nondistended. MUSCULOSKELETAL: No cyanosis, or edema. BACK: Nontender without obvious deformity. No CVA tenderness. EXTREMITIES: Nonfocal no edema or cyanosis Medications and IVs Current Medications Medications (Trade) Dose Ordered Sig/Prince Route Start Time Stop Time Status Last Admin IV Flush 2 ml 2 ml UNSCH PRN IVF 08/02/16 00:15 (NS 1000 ml Inj) 1,000 ml @ 184 mls/hr Q5H27M IV 08/02/16 01:53 08/03/16 06:44 (NS Flush) 2 ml UNSCH PRN IV FLUSH 08/02/16 02:00 (NS Flush) 2 ml BID IV FLUSH 08/02/16 09:00 08/02/16 23:35 (Tylenol) 650 mg Q6H PRN PO 08/02/16 02:00 (Ativan Inj) 2 mg Q4H PRN IV 08/02/16 02:00 08/03/16 03:40 (Tears Naturale Opth Soln) 1 drop TID EACH EYE 08/02/16 09:00 (Zofran Inj) 4 mg Q6H PRN IV 08/02/16 02:00 08/02/16 17:04 (Reglan Inj) 10 mg Q6H PRN IV 08/02/16 02:00 (Colace Liq) 100 mg Q12H G-TUBE 08/02/16 02:00 (Lovenox Inj) 40 mg Q24H SQ 08/02/16 06:00 08/03/16 06:44 Miscellaneous Information 1 Q361D XX 08/02/16 02:00 08/02/16 02:00 (Chlorhexidine 2% Cloth) 3 pack Taper DAILY@04 TOP 08/02/16 04:00 07/29/17 03:59 08/03/16 04:00 Chlorhexidine Gluconate 3 pack 3 pack UNSCH PRN TOP 08/02/16 02:00 Potassium Chloride 100 ml @ 50 mls/hr Q2H PRN IV 08/02/16 02:00 Potassium Chloride 100 ml @ 50 mls/hr Q2H PRN IV 08/02/16 02:00 Potassium Chloride 100 ml @ 25 mls/hr UNSCH PRN IV 08/02/16 02:00 Potassium Chloride 100 ml @ 50 mls/hr Q2H PRN IV 08/02/16 02:00 (Magnesium Sulfate Inj/NS Inj) 100 ml @ 50 mls/hr UNSCH PRN IV 08/02/16 02:00 Magnesium Oxide 800 mg 800 mg UNSCH PRN PO 08/02/16 02:00 (Magnesium Sulfate Inj/NS Inj) 100 ml @ 50 mls/hr UNSCH PRN IV 08/02/16 02:00 Potassium Phosphate 2000 mg 2,000 mg Q4H PRN PO 08/02/16 02:00 (Sodium Phosphate Inj/NS 250 ml Inj) 250 ml @ 42 mls/hr UNSCH PRN IV 08/02/16 02:00 Potassium Phosphate 2000 mg 2,000 mg UNSCH PRN PO/TUBE 08/02/16 02:00 (Potassium Phosphate Inj/NS 250 ml Inj) 260 ml @ 42 mls/hr UNSCH PRN IV 08/02/16 02:00 (Librium) 25 mg Taper TID PO 08/02/16 09:00 08/05/16 08:59 08/02/16 16:40 A/P Problem List: (1) Respiratory failure ICD Code: J96.90 (2) Alcohol poisoning ICD Code: T51.91XA (3) Slowness and poor responsiveness ICD Code: R46.4 Assessment and Plan 1. Respiratory Failure patient Intubated for Airway protection Improved Mechanical ventilation used, now her Intoxication resolved with no withdrawal symptoms was Extubated yesterday when Spontaneous Breathing Trial revealed vital Capacity 2L 2. Acute Toxic Metabolic Encephalopathy Improved. secondary to Acute alcohol Intoxication with level 385, drug Screen positive for Cannabis and Cocaine 3. Polysubstance abuse strongly recommended to stop behavior. stop drinking alcohol 4. electrolyte derangement replaced and following. DVT GI prophylaxis - Heparin and Pepcid Discharge Planning Expected later today or in am tomorrow. Problem Qualifiers (1) Respiratory failure: Qualified Code: J96.00 - Acute respiratory failure, unspecified whether with hypoxia or hypercapnia (2) Alcohol poisoning: Qualified Code: T51.94XA - Alcohol poisoning, undetermined intent, initial encounter Broderick Bowden MD Aug 03, 2016 07:58
[2016-08-03] MEDS ORDERED: POTASSIUM PHOSPHATE INJ 15 MMOL in SODIUM CHLORIDE 0.9% INJ 150 ML IV ONE (08:00)
[2016-08-03] MEDS: chlordiazePOXIDE 25 MG CAP PO SCH (08:06)
[2016-08-03] MEDS ORDERED: THIAMINE HCL 100 MG TAB PO SCH (09:00)
[2016-08-03] MEDS ORDERED: FOLIC ACID 1 MG TAB PO SCH (09:00)
[2016-08-03] MEDS ORDERED: MULTIVITAMIN TAB PO SCH (09:00)
[2016-08-03] MEDS: MAGNESIUM SULFATE 1 GM PREMIX 100 ML IV SCH ×2 (09:26→11:26)
[2016-08-03] MEDS ORDERED: POTASSIUM CHLORIDE 20 MEQ CONTROLLED RELEASE TAB PO ONE (09:30)
[2016-08-03] MEDS: SODIUM CHLORIDE 0.9% FLUSH 5 ML FLUSH IV FLUSH SCH (12:30)
[2016-08-03 15:59] LABS: MAGNESIUM 2.2 MG/DL (1.5-2.5)
--- NOTE | 2016-08-03 16:35 | HHI.DS ---
Discharge Summary Admission Date Aug 02, 2016 at 02:15 Discharge Date: Aug 03, 2016 Admitting Diagnosis Acute Respiratory insufficiency secondary to polysubstance abuse (1) Respiratory failure ICD Code: J96.90 Diagnosis: Principal (2) Alcohol poisoning ICD Code: T51.91XA Diagnosis: Principal (3) Slowness and poor responsiveness ICD Code: R46.4 Diagnosis: Principal (4) Polysubstance abuse ICD Code: F19.10 Diagnosis: Principal Procedures Endotracheal intubation and Extubation Brief History - From Admission 26-year-old female brought to emergency department heavily intoxicated with alcohol level 385, positive for cocaine and marijuana. In the emergency department she was lethargic but responsive and was intubated by ED attending for an airway protection. CBC/BMP: 08/03/16 0328 08/03/16 1521 Significant Findings Laboratory Tests Test 08/02/16 08/02/16 08/03/16 00:35 01:00 03:28 Chloride Level 110 MEQ/L (98-107) Blood Urea Nitrogen 6 MG/DL (7-18) Calcium Level 8.2 MG/DL 7.6 MG/DL (8.5-10.1) (8.5-10.1) Aspartate Amino Transf 59 U/L (15-37) (AST/SGOT) Alanine Aminotransferase 82 U/L (10-53) (ALT/SGPT) Acetaminophen Level LESS THAN 2.0 MCG/ML (10.0-30.0) Ethyl Alcohol Level 385 MG/DL (0-5) Hemoglobin 15.7 GM/DL (11.6-15.3) Hematocrit 46.4 % (35.0-46.0) Lymphocytes (%) (Auto) 47.2 % (9.0-44.0) Blood Gas HCO3 21 mmol/L (22-26) Blood Gas Base Excess -4.0 mmol/L (-2-2) Arterial Blood pH 7.32 (7.380-7.420) Arterial Blood Oxygen Content 21.4 Vol % (12.0-20.0) Blood Gas Hemoglobin 16.2 G/DL (12.0-16.0) Urine Cocaine Screen POS (NEG) Urine Cannabinoids Screen POS (NEG) Urine Bacteria RARE /hpf (NONE) Platelet Count 148 TH/MM3 (150-450) Potassium Level 3.2 MEQ/L (3.5-5.1) Phosphorus Level 2.4 MG/DL (2.5-4.9) Alkaline Phosphatase 43 U/L (45-117) Total Protein 6.1 GM/DL (6.4-8.2) Albumin 2.9 GM/DL (3.4-5.0) Imaging Last Impressions Head CT 08/02/16 0001 Signed Impressions: Service Date/Time: Tuesday, August 02, 2016 03:47 - CONCLUSION: 1. No acute findings. 2 small areas of encephalomalacia in the frontal lobes. Small yoel hole right frontal bone. Zachary Wills MD Chest X-Ray 08/02/16 0001 Signed Impressions: Service Date/Time: Tuesday, August 02, 2016 00:48 - CONCLUSION: 1. Endotracheal tube tip in proximal right mainstem bronchus. This should be withdrawn by 3 cm. Zachary Wills MD PE at Discharge GENERAL: Well-nourished, well-developed patient. No Distress. SKIN: Warm and dry. HEAD: Normocephalic. EYES: No scleral icterus. No injection or drainage. NECK: Supple, trachea midline. No JVD or lymphadenopathy. CARDIOVASCULAR: Regular rate and rhythm without murmurs, gallops, or rubs. RESPIRATORY: Breath sounds equal bilaterally. No accessory muscle use. GASTROINTESTINAL: Abdomen soft, non-tender, nondistended. MUSCULOSKELETAL: No cyanosis, or edema. BACK: Nontender without obvious deformity. No CVA tenderness. EXTREMITIES: Nonfocal no edema or cyanosis Hospital Course This is a pleasant 26 y/o Female who was brought in to ER with heavy alcohol intoxication alcohol level was 385 also drug screen positive for marijuana and Cocaine, was lethargic but responsive and was intubated for airway protection, seen by Pitch Filler extubated yesterday and transferred to Hospitalist group for today. Patient stable seen in Intensive Care Unit discussed with nurse Devon Justin her Potassium is 3.2, Magnesium 1.7, Phosphorus 2.4 replaced and following. no complaint by patient no Nausea, vomit or diarrhea. electrolytes replaced and she is ready for discharge at this time, discussed again with Mr. Anderson she is stable not able to give her any Benzodiazepine she is asking for due to severe Polysubstance abuse makes her a high risk for with this medicines. Assessment and Plan 1. Respiratory Failure patient Intubated for Airway protection Improved Mechanical ventilation used, now her Intoxication resolved with no withdrawal symptoms was Extubated yesterday when Spontaneous Breathing Trial revealed vital Capacity 2L 2. Acute Toxic Metabolic Encephalopathy Improved. secondary to Acute alcohol Intoxication with level 385, drug Screen positive for Cannabis and Cocaine 3. Polysubstance abuse strongly recommended to stop behavior. stop drinking alcohol 4. electrolyte derangement replaced DVT GI prophylaxis - Heparin and Pepcid Pt Condition on Discharge: Good Discharge Disposition: Discharge Home Discharge Time: <= 30 minutes Discharge Instructions DIET: Follow Instructions for: As Tolerated, No Restrictions Activities you can perform: Regular-No Restrictions Broderick Bowden MD Aug 03, 2016 16:35
== END 2016-08-03 18:00 | disposition home or self-care (01) | DRG 917 ==
LOC: NEPC 23:02 → NEDA 08-02 02:15 → HIME 08-02 04:00
PROVIDERS: ADMIT Internal Medicine; ATTEND Internal Medicine
PROC: 5A1935Z Respiratory Ventilation, Less than 24 Consecutive Hours (ICD-10-PCS; principal; 2016-08-01)
PROC: 0BH17EZ Insertion of Endotracheal Airway into Trachea, Via Natural or Artificial Opening (ICD-10-PCS; 2016-08-01)
DX: T51.0X1A Toxic effect of ethanol, accidental (unintentional), initial encounter (principal); J96.00 Acute respiratory failure, unspecified whether with hypoxia or hypercapnia; G92 Toxic encephalopathy; F10.129 Alcohol abuse with intoxication, unspecified; Y92.89 Other specified places as the place of occurrence of the external cause; Y90.8 Blood alcohol level of 240 mg/100 ml or more; F19.10 Other psychoactive substance abuse, uncomplicated; F14.90 Cocaine use, unspecified, uncomplicated; F12.90 Cannabis use, unspecified, uncomplicated
CPT/HCPCS: 31500; 36600; 70450; 71010; 80053; 80307; 81001; 82140; 82550; 82805; 83735; 84100; 84132; 84702; 84703; 85025; 85610; 87077; 87086; 87186; 87641; 94002; 94003; 94150; 96365; 96366; J0330; J1650; J2060; J2405; J3010; J3475; J3480; J7030

== ENCOUNTER 2016-12-05 15:05 | Emergency (ER) | payer SELFPAY ==
[~2016-12-05] VITALS: Ht 160 cm; Wt 80.0 kg
--- NOTE | 2016-12-05 15:08 | PD ---
HPI . Gallagher Act/ Alcohol intoxication Chief Complaint: Gallagher Act/Alcohol Intoxication Time Seen by Provider: 15:08 Travel History International Travel<30 days: No Contact w/Intl Traveler<30days: No Traveled to known affect area: No History of Present Illness HPI 26-year-old female under Gallagher act secondary to alcohol intoxication. Apparently patient was found outside a convenience store sleeping in the doorway. Police had to be called in to remove her. Upon arrival police state that she was not aware of her whereabouts aware of her own name. Apparently while moving her to the police car, patient became more coherent. She is now aware of her name. She tells me that she has had lots of beers to drink. She also admits to smoking marijuana. She has no physical complaints. She denies any suicide or homicidal ideation. She tells me, "You are my gangsta." She is very happy. [facility] Social History Alcohol Use: Yes Tobacco Use: Yes Substance Use: Yes (cocaine, pot) Allergies-Medications (Allergen,Severity, Reaction): Coded Allergies: Amoxicillin (Verified Allergy, Severe, Anaphylaxis, 12/05/16) Haldol (Verified Allergy, Severe, Anaphylaxis, 12/05/16) Reported Meds & Prescriptions Reported Meds & Active Scripts Active No Active Prescriptions or Reported Medications Review of Systems General / Constitutional: No: Fever Eyes: No: Visual changes HENT: No: Headaches Cardiovascular: No: Chest Pain or Discomfort Respiratory: No: Shortness of Breath Gastrointestinal: No: Abdominal Pain Genitourinary: No: Dysuria Musculoskeletal: No: Pain Skin: No Rash Neurologic: No: Weakness Psychiatric: No: Depression Endocrine: No: Polydipsia Hematologic/Lymphatic: No: Easy Bruising Physical Exam Narrative GENERAL: no acute distress, Well-nourished, well-developed patient. Very pleasant and cooperative but disheveled SKIN: Warm and dry. No visible rashes or bruising. left knee with two small abrasions without signs of infection HEAD: Normocephalic and atraumatic. EYES: No scleral icterus. No injection or drainage. EOM intact, PERRLA ENT: No nasal drainage noted. Mucous membranes pink. Airway patent. NECK: Supple, trachea midline. No JVD. No C-spine process tenderness, flexion and extension is normal. No tenderness of the musculature of the neck. CARDIOVASCULAR: Regular rate and rhythm without murmurs, gallops, or rubs. RESPIRATORY: Breath sounds equal bilaterally. No accessory muscle use. No rhonchi or rales. GASTROINTESTINAL: Abdomen soft, non-tender, nondistended. EXTREMITIES: No cyanosis or edema. All joints palpated and they're nontender. BACK: Nontender without obvious deformity. No CVA tenderness. NEURO: CN II-12 intact, galley stripper strength normal b/l, UE and LE 5/5, no focal deficits PSYCH: intoxicated and difficult to assess Data Data Last Documented VS Vital Signs Date Time Temp Pulse Resp B/P Pulse Ox O2 Delivery O2 Flow Rate FiO2 12/05/16 15:15 Room Air 12/05/16 15:14 98.0 84 16 125/83 99 Orders MDM Medical Decision Making Medical Screen Exam Complete: Yes Emergency Medical Condition: Yes Medical Record Reviewed: Yes Differential Diagnosis alcohol intoxication, drug induced mood disorder, marijuana abuse Narrative Course 26-year-old female here under Gallagher act. Patient is acutely intoxicated. She is very pleasant and cooperative. She has two small abrasions to her left knee. We have cleaned them and applied sterile dressings. She has been given oral hydration and snacks. Once she consuelo up she will be cleared for discharge. Discussed case with Dr. Curtis. Discussed with nurses. Once patient can walk and is appropriate, she can be discharged. Diagnosis Primary Impression: Alcohol intoxication Qualified Code: F10.920 - Alcohol intoxication, uncomplicated Additional Instructions: Follow up with your primary care provider. Med/Other Pt SpecificInfo: No Change to Meds Scripts No Active Prescriptions or Reported Meds Disposition: DISCHARGE HOME Condition: Stable Kathy Pantoja Dec 05, 2016 15:08
[2016-12-05 15:14] VITALS: BP 125/83; PULSE 84; RESP 16; TEMP 98; O2SAT 99
[2016-12-05 16:03] VITALS: BP 124/74
== END 2016-12-05 16:36 | disposition home or self-care (01) ==
LOC: NEPD 15:05
DX: F10.920 Alcohol use, unspecified with intoxication, uncomplicated (principal); F12.90 Cannabis use, unspecified, uncomplicated
CPT/HCPCS: 99283

== ENCOUNTER 2017-03-20 18:08 | Emergency (ER) | payer OTHER ==
[~2017-03-20] VITALS: Ht 165.1 cm; Wt 83.0 kg
[2017-03-20 19:01] VITALS: BP 119/81; PULSE 113; RESP 20; TEMP 98.7; O2SAT 99
[2017-03-20] MEDS ORDERED: HALOPERIDOL LACTATE 5 MG/ML AMP IM ONE (19:45)
[2017-03-20] MEDS ORDERED: diphenhydrAMINE HCL 50 MG/ML VIAL IV PUSH ONE (19:45)
[2017-03-20] MEDS ORDERED: LORazepam 2 MG/ML VIAL IM ONE (19:45)
[2017-03-21] MEDS ORDERED: DOXY100C PO (00:16)
[2017-03-21] MEDS ORDERED: BACT800T5 PO (00:16)
--- NOTE | 2017-03-21 00:24 | PD ---
HPI Chief Complaint: Psychiatric Symptoms Time Seen by Provider: 23:57 Travel History International Travel<30 days: No Contact w/Intl Traveler<30days: No Traveled to known affect area: No History of Present Illness HPI 26-year-old white female presents to emergency department under Shi act by PD. According to the Shi act she was brought in because of alcohol intoxication. She was passing out on the sidewalk in front of busy illnesses. She is homeless. Family does not want her back due to her alcohol abuse. The patient here denies any suicidal homicidal ideation. She does admit to alcohol abuse. She also states that she's had multiple skin abscesses which she has had for some time now. History of MRSA. Up-to-date with immunizations. No toxic ingestions. PFSH Past Medical History Narrative Medical Chronic alcohol abuse, hepatitis C, MRSA Cerebrovascular Accident: Yes Diminished Hearing: No Neurologic: Yes Immunizations Current: Yes Tetanus Vaccination: < 5 Years ?: Unknown LMP: UNK Past Surgical History Surgical History: No Previous Surgery Social History Alcohol Use: Yes (DAILY) Tobacco Use: Yes (1 PPD) Substance Use: Yes (cocaine, pot) Allergies-Medications (Allergen,Severity, Reaction): Coded Allergies: amoxicillin (Unverified Allergy, Severe, Anaphylaxis, 03/20/17) haloperidol (Unverified Allergy, Severe, Anaphylaxis, 03/20/17) Reported Meds & Prescriptions Reported Meds & Active Scripts Active Doxycycline Hyclate 100 Mg Cap 100 Mg PO BID Bactrim DS (Sulfamethoxazole-Trimethoprim) 800-160 Mg Tab 1 Tab PO BID Review of Systems General / Constitutional: No: Fever Eyes: No: Visual changes HENT: No: Headaches Cardiovascular: No: Chest Pain or Discomfort Respiratory: No: Shortness of Breath Gastrointestinal: No: Abdominal Pain Genitourinary: No: Dysuria Musculoskeletal: No: Pain Skin: No Rash Neurologic: No: Weakness Psychiatric: Positive: Mood Disorder, Substance Abuse, No: Anxiety, Depression , Suicidal Ideations, Disorder of Thought, Homicidal Ideation Endocrine: No: Polydipsia Hematologic/Lymphatic: No: Easy Bruising Physical Exam Narrative GENERAL: Well-nourished, well-developed patient. Smells of EtOH and appears intoxicated. SKIN: Patient has multiple scabbed and weeping open lesions on the upper and lower extremities consistent with MRSA. Minimal soft tissue erythema. No large abscesses.. HEAD: Normocephalic and atraumatic. EYES: No scleral icterus. No injection or drainage. ENT: No nasal drainage noted. Mucous membranes pink. Airway patent. NECK: Supple, trachea midline. Moves head freely without obvious discomfort. CARDIOVASCULAR: Regular rate and rhythm without murmurs, gallops, or rubs. RESPIRATORY: Breath sounds equal bilaterally. No accessory muscle use. GASTROINTESTINAL: Abdomen soft, non-tender, nondistended. EXTREMITIES: No cyanosis or edema. BACK: Nontender without obvious deformity. No CVA tenderness. NEURO: Patient is alert and oriented. no sensorimotor deficits. Nonfocal. Normal speech. PSYCH: No delusions. No auditory or visual hallucinations. Data Data Last Documented VS Vital Signs Date Time Temp Pulse Resp B/P (MAP) Pulse Ox O2 Delivery O2 Flow Rate FiO2 03/20/17 19:01 98.7 113 20 119/81 (94) 99 Orders Orders Drug Screen, Random Urine (03/20/17 19:11) Diphenhydramine Inj (Benadryl Inj) (03/20/17 19:45) Haloperidol Inj (Haldol Inj) (03/20/17 19:45) Lorazepam Inj (Ativan Inj) (03/20/17 19:45) Restraints Violent (03/20/17 19:36) Alcohol (Ethanol) (03/21/17 00:13) Doxycycline (Vibramycin) (03/21/17 00:30) Sulfamet-Trimeth Ds 800-160 Mg (Bactrim (03/21/17 00:30) Labs Laboratory Tests Test 03/20/17 19:45 Urine Opiates Screen NEG Urine Barbiturates Screen NEG Urine Amphetamines Screen NEG Urine Benzodiazepines Screen NEG Urine Cocaine Screen NEG Urine Cannabinoids Screen POS [facility] Medical Decision Making Medical Screen Exam Complete: Yes Emergency Medical Condition: Yes Medical Record Reviewed: Yes Differential Diagnosis Differential diagnoses: Alcohol intoxication, substance abuse, electrolyte abnormality, malingering Narrative Course This is a patient which was transferred [facility] after being evaluated treated on the [facility] wall I the prior provider. It appears that the patient was given Haldol, Ativan and Benadryl. Patient here appears to be intoxicated. She denies any suicidal or homicidal ideation. She does admit to alcohol abuse. The patient does not meet Shi act criteria. She is not suicidal homicidal. She is not suffering from acute mental illness. She was placed in her Shi act due to alcohol intoxication. Once the patient exhibits sobriety the patient will be allowed to leave. She has multiple MRSA lesions and she is given Bactrim DS and doxycycline by mouth. She'll be discharged on same. This is alcohol abuse, MRSA Diagnosis Primary Impression: Alcohol intoxication Qualified Codes: F10.920 - Alcohol use, unspecified with intoxication, uncomplicated Additional Impression: MRSA (methicillin resistant Staphylococcus aureus) infection Patient Instructions: General Instructions Additional Instructions: Rest. Increase fluids. Avoid alcohol. Avoid illegal substances. Follow-up with [facility]ws for detox. Do not operate a car or any heavy machinery under the influence of alcohol or drugs. Doxycycline and Bactrim DS. Daily wound care with soap, water, Neosporin. Follow-up with a medical doctor this week. Return to the ER for emergencies Med/Other Pt SpecificInfo: Prescription(s) given, Wound Care Scripts Doxycycline Hyclate (Doxycycline Hyclate) 100 Mg Cap 100 MG PO BID for Infection, #20 CAP 0 Refills Prov: Dillon Landin MD 03/21/17 Sulfamethoxazole-Trimethoprim (Bactrim DS) 800-160 Mg Tab 1 TAB PO BID for Infection, #20 TAB 0 Refills Prov: Dillon Landin MD 03/21/17 Disposition: 01 DISCHARGE HOME Condition: Stable Zachary Reddy Mar 21, 2017 00:24
[2017-03-21] MEDS ORDERED: SULFAMETHOXAZOLE-TRIMETHOPRIM DS 800-160 MG TAB PO ONE (00:30)
[2017-03-21] MEDS ORDERED: DOXYCYCLINE HYCLATE 100 MG CAP PO ONE (00:30)
[2017-03-21 04:57] VITALS: BP 122/73; RESP 18; O2SAT 97
== END 2017-03-21 05:02 | disposition home or self-care (01) ==
LOC: NEDAMB 18:08 → NEPD 03-21 05:02
DX: F10.129 Alcohol abuse with intoxication, unspecified (principal); L08.9 Local infection of the skin and subcutaneous tissue, unspecified; B95.62 Methicillin resistant Staphylococcus aureus infection as the cause of diseases classified elsewhere; F12.10 Cannabis abuse, uncomplicated; Y90.6 Blood alcohol level of 120-199 mg/100 ml
CPT/HCPCS: 80307; 84703; 99285

== ENCOUNTER 2017-10-03 11:12 | Emergency (ER) | payer OTHER ==
[~2017-10-03] VITALS: Ht 154.9 cm; Wt 75.0 kg
[~2017-10-03 11:12] MED LIST: BACT800T5 PO; DOXY100C PO
[2017-10-03] MEDS ORDERED: IOHEXOL 350 MG/ML 10 ML VIAL (for RAD DIAG) IVCONTRAST ONE (11:13)
[2017-10-03 11:29] VITALS: BP 139/73; PULSE 114; RESP 22; TEMP 98; O2SAT 99
[2017-10-03] MEDS ORDERED: CEPH-459 PO (11:39)
[2017-10-03] MEDS ORDERED: DIURTAB (11:39)
[2017-10-03] MEDS ORDERED: MORPHINE SULFATE 4 MG/ML INJ IV PUSH ONE (12:30)
[2017-10-03] MEDS ORDERED: SODIUM CHLORIDE 0.9% FLUSH 10 ML FLUSH IV FLUSH PRN (12:30)
[2017-10-03] MEDS ORDERED: DIATRIZOATE MEGLUM/DIATRIZOATE SOD 9 ML CUP ONE (12:44)
[2017-10-03 13:10] LABS: AUTOMATED NEUTROPHIL # 10.4 TH/MM3 (1.8-7.7); BASOPHIL # 0.1 TH/MM3 (0-0.2); BASOPHIL % 0.7 % (0.0-2.0); EOSINOPHIL # 0.3 TH/MM3 (0-0.4); EOSINOPHIL % 2.6 % (0.0-4.0); HEMATOCRIT 31.6 % (35.0-46.0); HEMOGLOBIN 10.1 GM/DL (11.6-15.3); LYMPH % 10.2 % (9.0-44.0); LYMPHOCYTE # 1.3 TH/MM3 (1.0-4.8); MEAN CELL VOLUME 90.5 FL (80.0-100.0); MEAN CORPUSCULAR HEMOGLOBIN 28.8 PG (27.0-34.0); MEAN CORPUSCULAR HGB CONC 31.9 % (32.0-36.0); MEAN PLATELET VOLUME 8.1 FL (7.0-11.0); MONO % 5.1 % (0.0-8.0); MONOCYTE # 0.7 TH/MM3 (0-0.9); NEUT % 81.4 % (16.0-70.0); PLATELET COUNT 300 TH/MM3 (150-450); RED BLOOD COUNT 3.49 MIL/MM3 (4.00-5.30); RED CELL DISTRIBUTION WIDTH 15.6 % (11.6-17.2); WHITE BLOOD COUNT 12.8 TH/MM3 (4.0-11.0)
[2017-10-03 13:16] LABS: INTERNATIONAL NORMALIZED RATIO 1.3 RATIO; PROTHROMBIN TIME - PATIENT 13.4 SEC (9.8-11.6)
[2017-10-03 13:36] LABS: BICARBONATE 26.4 MEQ/L (21.0-32.0); CALCIUM 8.2 MG/DL (8.5-10.1); CREATININE 0.43 MG/DL (0.50-1.00); DIRECT BILIRUBIN ADULT 1.1 MG/DL (0.0-0.2)
[2017-10-03 13:38] LABS: INDIRECT BILIRUBIN 0.4 MG/DL (0.0-0.8); TOTAL BILIRUBIN ADULT 1.5 MG/DL (0.2-1.0)
[2017-10-03 16:31] VITALS: BP 112/69; PULSE 108; RESP 19; O2SAT 99
--- NOTE | 2017-10-03 16:43 | RADRPT ---
EXAM DATE/TIME: 10/03/2017 16:15 [place] COMPARISON: No previous studies available for comparison. INDICATIONS : Abdominal pain and swelling. IV CONTRAST: 97 cc Omnipaque 350 (iohexol) IV ORAL CONTRAST: Prescribed oral contrast ingested. RADIATION DOSE: 16.31 CTDIvol (mGy) MEDICAL HISTORY : Cerebrovascular disease. SURGICAL HISTORY : None. ENCOUNTER: Initial ACUITY: 1 month PAIN SCALE: 10/10 LOCATION: abdomen TECHNIQUE: Volumetric scanning of the abdomen and pelvis was performed. Using automated exposure control and ad justment of the mA and/or kV according to patient size, radiation dose was kept as low as reasonably achievable to obtain optimal diagnostic quality images. DICOM format image data is available electro nically for review and comparison. FINDINGS: LOWER LUNGS: Mild airspace consolidation in the right lung base. LIVER: Subtle nodular contour of the liver. Gallbladder is moderately distended. There is moderate to large amount of ascites. Portal vein is patent. SPLEEN: Enlarged measuring up to 15 cm. PANCREAS: Within normal limits. KIDNEYS: Normal in size and shape. There is no mass, stone or hydronephrosis. ADRENAL GLANDS: Within normal limits. VASCULAR: There is no aortic aneurysm. BOWEL/MESENTERY: The stomach, small bowel, and colon demonstrate no acute abnormality. There is no free intraperitone al air or fluid. ABDOMINAL WALL: Mild diffuse soft tissue anasarca. RETROPERITONEUM: There is no lymphadenopathy. BLADDER: No wall thickening or mass. REPRODUCTIVE: Within normal limits. INGUINAL: There is no lymphadenopathy or hernia. MUSCULOSKELETAL: There is a large partially imaged somewhat complex peripherally enhancing fluid collection in the inf erior left gluteal region extending to the posterior compartment of the left thigh. There is no air n oted within this collection and the collection measures approximately 13 x 4 x 20 cm. No associated f ocal bone abnormality. CONCLUSION: 1. Cirrhotic appearing liver with evidence for portal hypertension and moderate to large amount of as cites. 2. Complex shaped irregular peripherally enhancing fluid collection in the inferior left gluteal viky on extending to the posterior compartment of the left thigh measuring 13 x 4 x 20 cm. This may reflec t a resolving/residual hematoma although other etiologies including chronic infection cannot be exclu ded. Clinical correlation is recommended. Barry Granados MD on October 03, 2017 at 16:36 Board Certified Radiologist. This report was verified electronically.
[2017-10-03 18:17] LABS: BACTERIA, URINE RARE /hpf; BILIRUBIN, URINE NEG (NEG); BLOOD, URINE NEG (NEG); GLUCOSE,URINE NEG (NEG); KETONE, URINE NEG (NEG); NITRITE,URINE NEG (NEG); PH, URINE 6.5 (5.0-8.5); SQUAMOUS EPITHELIAL CELL URINE 8 /hpf (0-5); URINE COLOR YELLOW (YELLW/STRAW); URINE LEUKOCYTE ESTERASE NEG (NEG)
--- NOTE | 2017-10-03 18:35 | PD ---
HPI Chief Complaint: Edema Time Seen by Provider: 11:37 Travel History International Travel<30 days: No Contact w/Intl Traveler<30days: No Traveled to known affect area: No History of Present Illness HPI Patient is a 27-year-old female who comes in complaining of constipation and abdominal pain. She was very lesions as directed, but she continues to have swelling of her legs and her abdomen. She also says she has not been able to have a proper bowel movement in over 2 weeks. She denies nausea or vomiting. She denies fever chills. She denies shortness of breath or chest pain. Severity is mild to moderate. PFSH Past Medical History Cerebrovascular Accident: Yes Diminished Hearing: No Medical other: Yes ("LIVER SWOLLEN") Neurologic: Yes Immunizations Current: Yes ?: Unknown LMP: 6 MONTHS Past Surgical History Abdominal Surgery: Yes (FEEDING TUBE AND REMOVAL) Social History Alcohol Use: No (QUIT) Tobacco Use: Yes (1 PPD) Substance Use: Yes (cocaine, pot) Allergies-Medications (Allergen,Severity, Reaction): Coded Allergies: amoxicillin (Verified Allergy, Severe, Anaphylaxis, 10/03/17) haloperidol (Verified Allergy, Severe, Anaphylaxis, 10/03/17) Reported Meds & Prescriptions Reported Meds & Active Scripts Active Reported [Diuretic] Unknown Dose Keflex (Cephalexin) 250 Mg Cap Unknown Dose PO Q6H Review of Systems Except as stated in HPI: all other systems reviewed are Neg General / Constitutional: No: Fever, Chills HENT: No: Headaches, Lightheadedness Cardiovascular: No: Chest Pain or Discomfort Respiratory: No: Shortness of Breath Gastrointestinal: Positive: Abdominal Pain, Constipation Musculoskeletal: Positive: Edema, No: Myalgias Neurologic: No: Weakness, Dizziness Physical Exam Narrative GENERAL: Awake and alert, no acute distress. SKIN: Focused skin assessment warm/dry. No wounds or signs of infection. HEAD: Atraumatic. Normocephalic. EYES: Pupils equal and round. No scleral icterus. No injection or drainage. ENT: No nasal bleeding or discharge. Mucous membranes pink and moist. NECK: Trachea midline. No JVD. CARDIOVASCULAR: Regular rate and rhythm. No murmur appreciated. RESPIRATORY: No accessory muscle use. Clear to auscultation. Breath sounds equal bilaterally. GASTROINTESTINAL: Abdomen enlarged, ascites present. Mild tenderness over the right upper quadrant. No rebound or guarding. MUSCULOSKELETAL: No obvious deformities. No clubbing. No cyanosis. Large edema of the bilateral lower extremities. NEUROLOGICAL: Awake and alert. No obvious cranial nerve deficits. Motor grossly within normal limits. Normal speech. PSYCHIATRIC: Appropriate mood and affect; insight and judgment normal. Data Data Last Documented VS Vital Signs Date Time Temp Pulse Resp B/P (MAP) Pulse Ox O2 Delivery O2 Flow Rate FiO2 10/03/17 18:56 10/03/17 16:31 108 19 99 Room Air 10/03/17 11:29 98.0 Orders Orders Basic Metabolic Panel (Bmp) (10/03/17 12:27) Complete Blood Count With Diff (10/03/17 12:27) Lipase (10/03/17 12:27) Prothrombin Time / Inr (Pt) (10/03/17 12:27) Act Partial Throm Time (Ptt) (10/03/17 12:27) Urinalysis - C+S If Indicated (10/03/17 12:27) Ct Abd/Pel W Iv Contrast(Rout) (10/03/17 12:27) Iv Access Insert/Monitor (10/03/17 12:27) Ecg Monitoring (10/03/17 12:27) Oximetry (10/03/17 12:27) Morphine Inj (Morphine Inj) (10/03/17 12:30) Sodium Chloride 0.9% Flush (Ns Flush) (10/03/17 12:30) Ed Urine Pregnancytest Poc (10/03/17 12:27) Hepatic Functional Panel (10/03/17 12:27) Oral Contrast - Adult (10/03/17 12:34) Diatrizoate Liq ( [place] Liq) (10/03/17 12:44) Iohexol 350 Inj (Omnipaque 350 Inj) (10/03/17 11:13) Ed Discharge Order (10/03/17 18:35) Labs Laboratory Tests Test 10/03/17 12:35 10/03/17 17:50 White Blood Count 12.8 TH/MM3 Red Blood Count 3.49 MIL/MM3 Hemoglobin 10.1 GM/DL Hematocrit 31.6 % Mean Corpuscular Volume 90.5 FL Mean Corpuscular Hemoglobin 28.8 PG Mean Corpuscular Hemoglobin Concent 31.9 % Red Cell Distribution Width 15.6 % Platelet Count 300 TH/MM3 Mean Platelet Volume 8.1 FL Neutrophils (%) (Auto) 81.4 % Lymphocytes (%) (Auto) 10.2 % Monocytes (%) (Auto) 5.1 % Eosinophils (%) (Auto) 2.6 % Basophils (%) (Auto) 0.7 % Neutrophils # (Auto) 10.4 TH/MM3 Lymphocytes # (Auto) 1.3 TH/MM3 Monocytes # (Auto) 0.7 TH/MM3 Eosinophils # (Auto) 0.3 TH/MM3 Basophils # (Auto) 0.1 TH/MM3 CBC Comment DIFF FINAL Differential Comment Prothrombin Time 13.4 SEC Prothromb Time International Ratio 1.3 RATIO Activated Partial Thromboplast Time 35.5 SEC Blood Urea Nitrogen 10 MG/DL Creatinine 0.43 MG/DL Random Glucose 86 MG/DL Total Protein 7.0 GM/DL Albumin 2.0 GM/DL Calcium Level 8.2 MG/DL Alkaline Phosphatase 370 U/L Aspartate Amino Transf (AST/SGOT) 44 U/L Alanine Aminotransferase (ALT/SGPT) 20 U/L Total Bilirubin 1.5 MG/DL Direct Bilirubin 1.1 MG/DL Sodium Level 136 MEQ/L Potassium Level 3.2 MEQ/L Chloride Level 98 MEQ/L Carbon Dioxide Level 26.4 MEQ/L Anion Gap 12 MEQ/L Estimat Glomerular Filtration Rate 176 ML/MIN Indirect Bilirubin 0.4 MG/DL Lipase 409 U/L Urine Color YELLOW Urine Turbidity CLEAR Urine pH 6.5 Urine Specific [place] GREATER THAN 1.050 Urine Protein TRACE mg/dL Urine Glucose (UA) NEG mg/dL Urine Ketones NEG mg/dL Urine Occult Blood NEG Urine Nitrite NEG Urine Bilirubin NEG Urine Urobilinogen 4.0 MG/DL Urine Leukocyte Esterase NEG Urine RBC 1 /hpf Urine WBC 1 /hpf Urine Squamous Epithelial Cells 8 /hpf Urine Bacteria RARE /hpf Microscopic Urinalysis Comment CULT NOT INDICATED MDM Medical Decision Making Medical Screen Exam Complete: Yes Emergency Medical Condition: Yes Differential Diagnosis Liver cirrhosis versus constipation versus acute liver failure Narrative Course Patient is a 27-year-old female who comes in complaining of constipation and swelling. Exam shows edema of her legs as well as ascites present. Have established, labs and. Labs consistent with alcoholic cirrhosis. She is a mild white count of 12.8. CT of abdomen pelvis performed shows ascites. There is a questionable resolving hematoma versus chronic infection to her gluteal area. On exam, there is nothing present on the skin, there is no tenderness to palpation. Patient says she did have an infection here that has been getting better. Last 24 hours Impressions Abdomen/Pelvis CT 10/03/17 1227 Signed Impressions: Service Date/Time: Tuesday, October 03, 2017 16:15 - CONCLUSION: 1. Cirrhotic appearing liver with evidence for portal hypertension and moderate to large amount of ascites. 2. Complex shaped irregular peripherally enhancing fluid collection in the inferior left gluteal region extending to the posterior compartment of the left thigh measuring 13 x 4 x 20 cm. This may reflect a resolving/residual hematoma although other etiologies including chronic infection cannot be excluded. Clinical correlation is recommended. Barry Granados MD I spoke with case management services that could be arranged for her, however there is nothing that can be done and she is to follow-up with janine Paiz. She is given information about his health. Advised follow-up with a primary care doctor as well as a green material value added assessor. Advised to avoid alcohol. Advised return as needed for any worsening symptoms. Diagnosis Primary Impression: Cirrhosis of liver Qualified Codes: K70.31 - Alcoholic cirrhosis of liver with ascites Referrals: [facility] call for appointment Patient Instructions: Ascites (ED), Cirrhosis (ED), General Instructions Additional Instructions: Follow up with a primary care physician. Return to the ED as needed for any worsening symptoms. Disposition: 01 DISCHARGE HOME Condition: Stable Ambreen Mott MD October 03, 2017 18:35
== END 2017-10-03 18:57 | disposition home or self-care (01) ==
LOC: NEPE 11:12
DX: K70.31 Alcoholic cirrhosis of liver with ascites (principal); R60.0 Localized edema; K59.00 Constipation, unspecified; F17.200 Nicotine dependence, unspecified, uncomplicated; Z86.73 Personal history of transient ischemic attack (TIA), and cerebral infarction without residual deficits; Z86.69 Personal history of other diseases of the nervous system and sense organs; Z87.19 Personal history of other diseases of the digestive system
CPT/HCPCS: 74177; 80048; 80076; 81001; 83690; 84703; 85025; 85610; 85730; 96374; 99285; J2270; Q9963; Q9967